=== PATIENT | male | born 1975 | race Caucasian/White ===

== ENCOUNTER 2016-03-30 19:46 | Emergency (ER) | payer OTHER, MEDICAID ==
[~2016-03-30] VITALS: Ht 177.8 cm; Wt 118.6 kg
[2016-03-30 19:56] VITALS: BP 176/135; PULSE 110; RESP 18; O2SAT 96
--- NOTE | 2016-03-30 20:53 | DRSVH ---
PROCEDURE: X-RAY CHEST, TWO VIEWS ([id number]) INDICATIONS: Cough TECHNIQUE: 2 views of the chest were acquired. COMPARISON: None. FINDINGS: Surgical changes and devices: None. Lungs and pleura: Possible developing lingular infiltrate. No pleural effusions or pneumothorax. Mediastinum: Mediastinal contours are normal. Heart size is normal. Bones and chest wall: No suspicious bony abnormalities. Soft tissues appear unremarkable. IMPRESSION: Possible developing lingular infiltrate. Dictated by: Denise Stern M.D. on 03/30/2016 at 20:51 Approved by: Denise Stern M.D. on 03/30/2016 at 20:52
--- NOTE | 2016-03-30 20:59 | ED.REPORT ---
HPI-General Illness Date of Service Mar 30, 2016 ED Provider: Rodrigo Connolly MD Patient is a 40 year old male with hypertension who presents to the ED with flu- like symptoms for the past 4 days. Patient reports associated nasal congestion, runny nose, sore throat, headache, cough, and shortness of breath. He denies a productive cough but he reports chest pain with cough. Patient states that his symptoms began with nasal congestion and runny nose, for which he took Mucinex. Patient states that he tried to go to work today and he simply felt more unwell. He also stopped taking his HCTZ due to his flu-like symptoms. He has been drinking plenty of fluids. He denies nausea, vomiting, diarrhea, abdominal pain, dysuria, or increased swelling in his legs. He denies a history of asthma and he is a nonsmoker. Nursing Notes Stated Complaint: FLU SYMPTOMS Chief Complaint: FLU/Cold Symptoms Nursing Notes Reviewed: Yes Allergies: Coded Allergies: brompheniramine (Verified Allergy, Unknown, 03/30/16) phenylpropanolamine (Verified Allergy, Unknown, 03/30/16) Scheduled Azithromycin (Zithromax) 250 Mg Tablet 250 MG PO DAILY Cefuroxime Axetil (Cefuroxime) 500 Mg Tablet 500 MG PO BID General Time Seen by MD: 20:59 Chief Complaint Flu-like illness Hx Obtained From: Patient Arrived By: Walk-in Sudden in Onset?: No Onset Occurred: 4 days ago Location: : Head Severity: Current: Mild Severity: Maximum: Moderate Recent Healthcare: No recent doctor visit, No recent hospitalization Similar Sx Previous: No Past Medical History Past Medical History Reports: Hypertension, Denies: Asthma Past Surgical History Denies Smoking History Never Smoker Social History Other Social History: Local resident Ambulatory Status Independent Review of Systems Full Review of Systems Constitutional: Reports: Fever (subjective), Denies: Chills Ears / Nose / Throat: Reports: Nasal congestion, Sore throat Respiratory: Reports: Non-productive cough, Pleuritic pain, Shortness of breath , Denies: Prod cough, yellow GI: Denies: Abdominal pain, Diarrhea, Nausea, Vomiting Male: Denies Dysuria Allergy / Immune: Reports: Rhinorrhea Neurologic: Reports: Headache Complete sys rev & neg: except as marked. Physical Exam Vital Signs Vital Signs Date Time Temp Pulse Resp B/P Pulse Ox O2 Delivery O2 Flow Rate FiO2 03/30/16 23:07 37.0 89 20 154/82 97 Room Air 03/30/16 22:05 104 18 161/86 98 Room Air 03/30/16 19:56 36.8 110 18 176/135 96 Room Air Initial VS: Reviewed Abdomen / GI: Soft, Non-tender Extremities: Vascular intact, Neuro intact, No swelling (no edema) Neurologic: Alert, Oriented, Nonfocal Psychiatric: Mood/affect normal, Behavior normal, Normal thought content General/Constitutional: Awake, Alert Appearance / Presentation: Positive: Obese Head / Eyes: Atraumatic, Normocephalic, PERRL ENT: Airway patent Neck: Supple, Full range of motion Respiratory / Chest: No respiratory distress, No rales wheezing, scattered, right worse than left. bronchospastic and wheezy cough. Cardiovascular: Regular rhythm, No murmurs Heart Rate / Rhythm: Positive: Tachycardia Skin: Dry Color / Condition: Positive: Diaphoresis present Interpretation & Diagnostics Interpretation & Diagnostics: NEGATIVE FOR INFLUENZA TYPE A AND B Lab Results Interpretation Result Diagram: 03/30/16212903/30/162129 Test 03/30/16 21:30 03/30/16 21:37 White Blood Count 9.7th/mm3 (3.8-10.1) Red Blood Count 5.78mil/mm3 (4.40-5.80) Hemoglobin 16.6g/dL (13.8-17.2) Hematocrit 47.9% (41.0-50.0) Mean Corpuscular Volume 82.9fL (81-100) Mean Corpuscular Hemoglobin 28.7pg (27.0-35.0) Mean Corpuscular Hemoglobin Concent 34.7% (32.0-37.0) Red Cell Distribution Width 13.9% (12.3-15.4) Platelet Count 302bil/L (150-400) Neutrophils (%) (Auto) 63.0% (40-74) Lymphocytes (%) (Auto) 21.8% (14-46) Monocytes (%) (Auto) 14.2% (4-12) Eosinophils (%) (Auto) 0.5% (0-5) Basophils (%) (Auto) 0.2% (0-3) Sodium Level 139mEq/L (134-144) Potassium Level 4.1mEq/L (3.5-5.2) Chloride Level 98mEq/L (97-108) Carbon Dioxide Level 25mmol/L (18-29) Blood Urea Nitrogen 13mg/dL (6-20) Creatinine 0.90mg/dL (0.76-1.27) Estimat Glomerular Filtration Rate 100mL/min (>59) Glucose Level 105mg/dL (60-99) Calcium Level 8.8mg/dL (8.5-10.1) Total Bilirubin 0.3mg/dL (0.0-1.2) Aspartate Amino Transf (AST/SGOT) 30U/L (0-50) Alanine Aminotransferase (ALT/SGPT) 52U/L (0-44) Alkaline Phosphatase 95U/L (25-150) Pro-B-Type Natriuretic Peptide 20.21pg/mL (0-86) Total Protein 7.7g/dL (6.4-8.4) Albumin 4.4g/dL (3.4-5.0) Hold Baeza Top Tube Received (Received) ECG Interpretation Time: 20:25 Interpreted by: ED physician Normal ECG Interpretation: Normal ECG w/ rate of... (96), No acute ischemic changes X-Ray Chest Interpretation Chest Xray Interpretation: IMPRESSION: Possible developing lingular infiltrate. Dictated by: Denise Stern M.D. on 03/30/2016 at 20:51 Approved by: Denise Stern M.D. on 03/30/2016 at 20:52 View: AP & lat Interpretation / Wet Read by: Interpret - Radiologist Re-Eval/Medical Decision Med Decision/Clinical Course 5-year-old with cough and shortness of breath, who approves ultimately to have a mild developing lingular infiltrate. He is begun with Rocephin and azithromycin, with Ceftin and azithromycin follow-up. He is discharged in stable condition. Also provided an albuterol metered-dose inhaler and spacer Source of Hx: Old records Time of Eval: 21:58 Patient Status: Condition improved Re-Evaluation/Progress Note: Patient was informed that he has pneumonia, which will be treated with antibiotics. Patient understands and agrees with the plan to be discharged home. Discharge instructions and follow-up discussed. All questions were addressed. Return to the ED warnings given. Counseled Regarding: Diagnosis, Lab results, Need for follow-up, When/why to return to ED Discharge & Departure Primary Impression: Lingular pneumonia Additional Impression: Reactive airway disease Disposition: Home Discharge Condition All VS Reviewed: Yes Condition: Stable Patient Instructions: Community-acquired Pneumonia (ED) Additional Instructions: Begin Ceftin twice daily. Begin azithromycin once daily for four more days. Follow-up with your doctor in the office. Drink plenty of fluids and stay hydrated. Albuterol two puffs with spacer every 3-4 hours as needed for cough and shortness of breath. Return if worse despite treatment. Scribe Attestation Portions of this note were transcribed by Beatriz Jalloh. I, Dr. Connolly personally performed the history, physical exam and medical decision-making; I reviewed and confirmed the accuracy of the information in the transcribed note. Signed by: Yamil Carr, 03/30/2016 2204 Rodrigo Connolly MD Mar 30, 2016 20:59 Beatriz Jalloh Mar 30, 2016 21:07
[2016-03-30] MEDS ORDERED: Albuterol-Ipratropium 3 mL Inhalation Solution NEB ONE (21:10)
[2016-03-30] MEDS ORDERED: cefTRIAXone 2,000 mg/D5W 50 mL IV Minibag Plus IV ONE ×2 (21:40)
[2016-03-30 21:47] LABS: BASOPHILS % (AUTO) 0.2 % (0-3); EOSINOPHILS % (AUTO) 0.5 % (0-5); MONOCYTES % (AUTO) 14.2 % (4-12); Mean Corpuscular Hemoglobin 28.7 pg (27.0-35.0); Mean Corpuscular Volume 82.9 fL (81-100); Platelet Count 302 bil/L (150-400)
[2016-03-30] MEDS ORDERED: _Albuterol-HFA 60 Puff Inhaler INHALATION PRN (22:00)
[2016-03-30 22:05] VITALS: BP 161/86; PULSE 104; RESP 18; O2SAT 98
[2016-03-30] MEDS ORDERED: ZIT250 PO (22:58)
[2016-03-30] MEDS ORDERED: CEFU500T61 PO (22:58)
[2016-03-30 23:07] VITALS: BP 154/82; PULSE 89; RESP 20; O2SAT 97
== END 2016-03-30 23:08 | disposition home or self-care (01) ==
LOC: SED 19:46
DX: J18.9 Pneumonia, unspecified organism (principal); J45.909 Unspecified asthma, uncomplicated; I10 Essential (primary) hypertension; Z88.8 Allergy status to other drugs, medicaments and biological substances
CPT/HCPCS: 36415; 71020; 80053; 83880; 85025; 87040; 87804; 93005; 99285; J0696; J7620

== ENCOUNTER 2016-10-28 10:09 | Emergency (ER) | payer OTHER ==
[~2016-10-28] VITALS: Ht 177.8 cm; Wt 118.2 kg
[~2016-10-28 10:09] MED LIST: CEFU500T61 PO; ZIT250 PO
[2016-10-28 10:11] VITALS: BP 148/94; PULSE 97; RESP 25; O2SAT 95
--- NOTE | 2016-10-28 10:24 | ED.REPORT ---
HPI-Chest Pain 40 and Over Date of Service Oct 28, 2016 ED Provider: Iza Camargo MD Patient is a 41 year old male with a hx of HTN who presents to the ED complaining of upper left chest pain onset this morning while combing his hair. His pain is worse with movement of his L arm and his neck. Associated symptoms include elevated BP at home. He denies SOB, nausea, vomiting, lightheadedness, diaphoresis, or any other symptoms. Nursing Notes Stated Complaint: UPPER LEFT CHEST PAIN Chief Complaint: Chest Pain Nursing Notes Reviewed: Yes Allergies: Coded Allergies: brompheniramine (Verified Allergy, Unknown, 03/30/16) phenylpropanolamine (Verified Allergy, Unknown, 03/30/16) Scheduled Azithromycin (Zithromax) 250 Mg Tablet 250 MG PO DAILY Cefuroxime Axetil (Cefuroxime) 500 Mg Tablet 500 MG PO BID Dexamethasone (Dexamethasone) 1 Mg Tab 10 MG PO DAILY 10mg on 10/29 and 10/30 Scheduled PRN oxyCODONE-Acetaminophen 5-325 mg (oxyCODONE-Acetaminophen 5-325 mg) 1 Each Tablet 1-2 TAB PO Q6H PRN PRN For Pain General Time Seen by MD: 10:23 Chief Complaint Chest pain Hx Obtained From: Patient Arrived By: Walk-in Sudden in Onset?: Yes Onset Occurred: 1 - 4 hours ago Symptom Duration: Since onset Location: : Chest left Quality: Painful Severity: Current: Moderate Severity: Maximum: Moderate Risk Factors )( CAD Risk Stratification HypertensionNo Diabetes mellitus, No Hyperlipidemia, No Known CAD )( TAD Risk Stratification HypertensionNo Risk factors reviewed )( PE Risk Stratification No Previous DVT, No Previous PE Risk factors reviewed Past Medical History Past Medical History Reports: Hypertension Past Surgical History Denies Smoking History Never Smoker Social History Other Social History: Local resident Ambulatory Status Independent Review of Systems Review of Systems Note: +elevated BP Respiratory: Denies: Shortness of breath Cardiovascular: Reports: Chest pain GI: Denies: Nausea, Vomiting Skin: Denies Diaphoresis Neurologic: Denies: Lightheaded Complete sys rev & neg: except as marked. Physical Exam Initial Vital Signs Vital Signs (First) Date Time Temp Pulse Resp B/P Pulse Ox O2 Delivery O2 Flow Rate FiO2 10/28/16 10:11 36.8 97 25 148/94 95 Room Air Initial VS: Reviewed, Vital signs abnormal Head / Eyes: Atraumatic, Normocephalic Skin: Warm, Dry Neurologic: Alert, Oriented, Nonfocal Psychiatric: Mood/affect normal, Behavior normal, Normal thought content General/Constitutional: Awake, Alert, No acute distress Respiratory / Chest: Atraumatic, Breath sounds NL, Breath sounds = bilat, No respiratory distress Cardiovascular: Heart rate NL, Regular rhythm, Heart sounds NL Abdomen: Atraumatic, Soft, Non-tender Neck: Atraumatic radicular pain with compression, rotation to R, and bending to the left Interpretation & Diagnostics Lab Results Interpretation Result Diagram: 10/28/16 1025 10/28/16 1025 Test 10/28/16 10:25 White Blood Count 8.4th/mm3 (3.8-10.1) Red Blood Count 5.41mil/mm3 (4.40-5.80) Hemoglobin 15.8g/dL (13.8-17.2) Hematocrit 45.7% (41.0-50.0) Mean Corpuscular Volume 84.5fL (81-100) Mean Corpuscular Hemoglobin 29.2pg (27.0-35.0) Mean Corpuscular Hemoglobin Concent 34.6% (32.0-37.0) Red Cell Distribution Width 13.3% (12.3-15.4) Platelet Count 308bil/L (150-400) Neutrophils (%) (Auto) 61.1% (40-74) Lymphocytes (%) (Auto) 21.9% (14-46) Monocytes (%) (Auto) 9.2% (4-12) Eosinophils (%) (Auto) 6.7% (0-5) Basophils (%) (Auto) 0.6% (0-3) Sodium Level 139mEq/L (134-144) Potassium Level 4.2mEq/L (3.5-5.2) Chloride Level 100mEq/L (97-108) Carbon Dioxide Level 23mmol/L (18-29) Blood Urea Nitrogen 17mg/dL (6-20) Creatinine 1.09mg/dL (0.76-1.27) Estimat Glomerular Filtration Rate 80mL/min (>59) Glucose Level 121mg/dL (60-99) Calcium Level 8.9mg/dL (8.5-10.1) Magnesium Level 2.0mg/dL (1.6-2.6) Total Bilirubin 0.4mg/dL (0.0-1.2) Aspartate Amino Transf (AST/SGOT) 28U/L (0-50) Alanine Aminotransferase (ALT/SGPT) 40U/L (0-44) Alkaline Phosphatase 77U/L (25-150) Troponin T 0.010ug/L (0.0-0.011) Total Protein 7.0g/dL (6.4-8.4) Albumin 4.0g/dL (3.4-5.0) Hold Baeza Top Tube Received (Received) ECG Interpretation ECG Interpretation: Sinus rate 81 No ischemia Time: 10:26 Interpreted by: ED physician X-Ray Chest Interpretation Chest Xray Interpretation: IMPRESSION: No acute pulmonary process. Dictated by: Courtney Stafford M.D. on 10/28/2016 at 10:55 Approved by: Courtney Stafford M.D. on 10/28/2016 at 10:55 View: Portable, 1 view Interpretation / Wet Read by: Interpret - Radiologist Re-Eval/Medical Decision Time of Eval: 11:51 Re-Evaluation/Progress Note: Rechecked pt who is not feeling better. Discussed lab, imaging, and EKG results. Discussed plan for discharge. Patient understands and agrees with plan. All questions addressed at this time. Counseled Regarding: Diagnosis, Lab results, Need for follow-up, When/why to return to ED Discharge & Departure Primary Impression: Non-cardiac chest pain Additional Impression: Cervical radiculopathy Disposition: Home Discharge Condition All VS Reviewed: Yes Condition: Stable Patient Instructions: Cervical Radiculopathy (ED) Additional Instructions: Thank you for coming to the emergency department. Your labs, EKG, and X-ray are reassuring. We did not find a dangerous cause for your symptoms at this time. I believe your symptoms are due to nerve pain radiating down into your chest and shoulder. Expect your pain to increase tomorrow. Take Tylenol as needed for pain. For more intense pain, you may take Percocet. Do not drive, drink alcohol, or take acetaminophen while taking Percocet. Take Decadron, 10mg a day, for 3 days (including today). Do not take Ibuprofen with Decadron. Follow up with your primary doctor if your symptoms do not improve within the next week. Referrals: NOPCP (PCP) Yamil Attestation Portions of this note were transcribed by Theron Galeano. I, Dr. Camargo personally performed the history, physical exam and medical decision-making; I reviewed and confirmed the accuracy of the information in the transcribed note. Signed by: Yamil Camp, 10/28/16 Iza Camargo MD Oct 28, 2016 10:24 THERON GALEANO Oct 28, 2016 10:43
[2016-10-28 10:30] VITALS: BP 131/91; PULSE 93; RESP 23; O2SAT 95
[2016-10-28 10:36] LABS: BASOPHILS % (AUTO) 0.6 % (0-3); EOSINOPHILS % (AUTO) 6.7 % (0-5); MONOCYTES % (AUTO) 9.2 % (4-12); Mean Corpuscular Hemoglobin 29.2 pg (27.0-35.0); Mean Corpuscular Volume 84.5 fL (81-100); NEUTROPHILS % (AUTO) 61.1 % (40-74); Platelet Count 308 bil/L (150-400)
--- NOTE | 2016-10-28 10:56 | DRSVH ---
PROCEDURE: X-RAY CHEST ONE VIEW, PORTABLE ([id number]) INDICATIONS: chest pain TECHNIQUE: One view of the chest was acquired. COMPARISON: [facility], CR, XR CHEST 2VW, 03/30/2016, 20:11. FINDINGS: Surgical changes and devices: None. Lungs and pleura: No pleural effusions or pneumothorax. Lungs are clear. Mediastinum: Mediastinal contours appear normal. Heart size is normal. Bones and chest wall: No suspicious bony lesions. Overlying soft tissues appear unremarkable. IMPRESSION: No acute pulmonary process. Dictated by: Courtney Stafford M.D. on 10/28/2016 at 10:55 Approved by: Courtney Stafford M.D. on 10/28/2016 at 10:55
[2016-10-28 10:57] LABS: TROPONIN T 0.01 ug/L (0.0-0.011)
[2016-10-28 11:00] VITALS: BP 140/90; PULSE 99; RESP 22; O2SAT 95
[2016-10-28 11:30] VITALS: BP 139/81; PULSE 93; RESP 20; O2SAT 96
[2016-10-28] MEDS ORDERED: Dexamethasone Inj 10 MG in 0.9% Sodium Chloride-Pha MIX 50 ML IV ONE (11:55)
[2016-10-28 12:00] VITALS: BP 152/74; PULSE 92; RESP 22; O2SAT 96
[2016-10-28] MEDS ORDERED: DEX1 PO (12:11)
[2016-10-28] MEDS ORDERED: OXYC1TAB24 PO (12:11)
[2016-10-28 13:19] VITALS: BP 127/76; PULSE 81; RESP 18; O2SAT 96
== END 2016-10-28 12:50 | disposition home or self-care (01) ==
LOC: SED 10:09
DX: R07.89 Other chest pain (principal); M54.12 Radiculopathy, cervical region; I10 Essential (primary) hypertension; Z88.8 Allergy status to other drugs, medicaments and biological substances
CPT/HCPCS: 36415; 71010; 80053; 83735; 84484; 85025; 93005; 96374; 96375; 99285; J1100; J1885